=== PATIENT | female | born 1960 | race Caucasian/White ===

== ENCOUNTER → 2016-12-28 | Outpatient (CLI) | payer MEDICARE ==
[~2016-12-28] MED LIST: ACETAMINOPHEN650 M1 PO; AMBIEN10 MG PO; BACTRIM DS TAB1 EACH PO; BIOTIN2500 MCG PO; BUTRANS1 EAC3 TD; CELEXA PO; CLARITIN10 M2 PO; GERITOL COMPLET1 TA1 PO; GLUCOSAMINE &1 EAC1 PO; HYDROCODON-ACE1 EAC5 PO; ICAPS AREDS1 TAB.SA PO; LISINOPRIL10 MG PO; LORCET HD 10-31 EACH PO; MULTI VITAMIN1 EACH PO; OCUVITE SOFTGE1 EACH PO; OMEPRAZOLE40 M1 PO; OSTEO BI-FLEX1 EAC4 PO; PERCOCET 5/321 UDTAB PO; PERCOCET 7.5-31 EACH PO; PRAVASTATIN SOD40 MG PO; REMICADE IV; SEROQUEL25 MG PO; VERAPAMIL SR240 MG PO; WELLBUTRIN PO; XARELTO10 MG PO; XELJANZ XR11 MG PO; XELJANZ5 MG PO
--- NOTE | ~2016-12-28 | EKG ---
PATIENT: SOURAV CERVANTES UNIT #: [id number] Ventricular Rate: 70 BPM Atrial Rate: 70 BPM P-R Interval: 178 ms QRS Duration: 78 ms Q-T Interval: 408 ms QTC Calculation(Bezet): 440 ms P [employer]: 3 degrees Calculated R [employer]: 13 degrees Calculated T [employer]: 13 degrees Diagnosis Line: Normal sinus rhythm Diagnosis Line: Normal ECG Diagnosis Line: When compared with ECG of 24-SEP-2015 10:15, Diagnosis Line: No significant change was found Diagnosis Line: Confirmed by ADRIANO LEBRON MD ([id number]) on 12/29/2016 Diagnosis Line: 10:37:57 AM INTERPRETING MD: VI EPSTEIN
[2016-12-28 15:15] LABS: HEMATOCRIT 39.2 % (35.0-45.0); MEAN CORPUSCULAR HEMOGLOBIN 30.9 PG (28-34); MEAN CORPUSCULAR HGB CONC 33.2 g/dL (30-36); MEAN PLATELET VOLUME 8.7 FL (6.5-11.5); RED BLOOD COUNT 4.21 X10e (3.90-5.30); RED CELL DISTRIBUTION WIDTH 13.3 % (11.0-15.5); WHITE BLOOD COUNT 5.7 X10e3 (4.0-10.5)
[2016-12-28 15:19] LABS: URINE APPEARANCE CLEAR; URINE BILIRUBIN NEG (NEG); URINE BLOOD NEG (NEG); URINE COLOR YELLOW; URINE GLUCOSE NEG (NEG); URINE KETONE NEG (NEG); URINE LEUKOCYTE ESTERASE 1+ (NEG); URINE NITRATE NEG (NEG); URINE PROTEIN NEG (NEG); URINE SPECIFIC GRAVITY 1.013 (1.003-1.035); URINE UROBILINOGEN 0.2 MG/DL (NEG)
[2016-12-28 15:21] LABS: CULTURE INDICATED? YES; U HYALINE CASTS AUWI 0-2 /[LPF]; URBCS1 AUWI 0-2 /[HPF] (0-2); URINE BACTERIA AUWI NEG (NEGATIVE); URINE SQUAMOUS EPITHELIAL CELL NONE SEEN /[HPF]
[2016-12-28 15:23] LABS: URINE SOURCE CLEAN CATCH
[2016-12-28 16:10] LABS: BUN/CREATININE RATIO 13.12; CALCIUM SERUM 9.4 mg/dL (8.4-10.2); CREATININE SERUM 1.6 mg/dL (0.6-1.4); GLOM FILT RATE Estimated 35.2 mL/min (>60); POTASSIUM 4.4 mmol/L (3.5-5.1)
== END | disposition home or self-care (01) ==
LOC: CAMB 12-27 13:00
PROVIDERS: Orthopaedic Surgery
DX: Z01.818 Encounter for other preprocedural examination (principal)
CPT/HCPCS: 36415; 80048; 81003; 85027; 87070; 87086; 93005

== ENCOUNTER 2017-01-10 14:37 | Inpatient (IN) | payer MEDICARE ==
--- NOTE | ~2017-01-10 | HP ---
Unit #: [id number] #: [id number] Patient: SOURAV CERVANTES [id number] [address] [address] [id number] I MR#: [id number] NAME: SOURAV CERVANTES. ROOM: [facility] Age: Sex: F Admission Date: 01/10/2017 : 1960 Attending Physician: Jesus Razo M.D. Primary Care Physician: Generic Doctor Not In System HISTORY AND PHYSICAL CHIEF COMPLAINT Abnormal labs. HISTORY OF PRESENT ILLNESS The patient is a 56-year-old female who was awaiting revision of left total ankle arthroplasty earlier today and was found to have hypotension. The patient's blood pressure was 74/56. The patient had workup in the preop area with abnormal labs with a potassium of 6.6 and creatinine of 6.5, and the patient was sent to the emergency room for further workup. The patient stated that patient was started on antibiotic Bactrim for a questionable UTI by the orthopedic surgeon. The patient also complained of feeling tired and spasm feelings in the belly. The patient denied any urinary complaints, urgency, or frequency. The patient was found to be hypotensive in the emergency room with a blood pressure of 72/45, and patient received Kayexalate, amp of D50, regular insulin, sodium bicarbonate, and calcium gluconate in the emergency room. The patient had a CT of the abdomen and pelvis that showed nonobstructing bilateral calculi and no acute findings. The patient is being admitted for the above reasons. PAST MEDICAL HISTORY 1. Dysphagia. 2. Coronary artery disease. 3. Rheumatoid arthritis. 4. Hypertension. 5. Gastroesophageal reflux disease. 6. Hypercholesterolemia. PAST SURGICAL HISTORY 1. Tonsillectomy. 2. Cholecystectomy. 3. Partial hysterectomy. 4. Colon resection. 5. Reversal of colostomy. 6. Breast biopsy. ALLERGIES None. HOME MEDICATIONS 1. Multivitamin. 2. Ocuvite. 3. Bactrim. Unit #: [id number] #: [id number] Patient: SOURAV CERVANTES 4. Hydrocodone. 5. Claritin. 6. Seroquel. 7. Lisinopril. 8. Xeljanz. 9. Osteo Bi-Flex. 10. Wellbutrin. 11. Celexa. 12. Pravastatin. 13. Verapamil. SOCIAL HISTORY No history of smoking, alcohol, or any illicit drug abuse. FAMILY HISTORY Reviewed and none. REVIEW OF SYSTEMS A 14-point review of systems was performed and only pertinent positive findings are described above. The remaining are negative. PHYSICAL EXAMINATION GENERAL: Patient is lying in bed not in acute distress. VITAL SIGNS: Temperature 98.2, pulse 85, respiratory rate 16, blood pressure 172/45, and saturating 100% on room air. HEENT: Head atraumatic, normocephalic. Pupils equal, round, and reactive to light and accommodation. Extraocular movements are intact. Dry mucous membranes. NECK: Supple. LUNGS: Clear to auscultation. HEART: Regular rate and rhythm. ABDOMEN: Soft. Positive bowel sounds. EXTREMITIES: Patient has swelling of the ankle. There is no warmth or effusion. Tender to palpation over the medial malleolus. DIAGNOSTIC STUDIES LABORATORY: Glucose 92, BUN 61, creatinine 6.5, sodium 134, potassium 6.6, chloride 107, bicarb 17, calcium 9.2, total protein 7.3, albumin 4.3, AST 16, ALT 14, and alkaline phosphatase 60. WBC 5.4, hemoglobin 10.9, hematocrit 34.1, and platelets 219,000. Urinalysis shows 2+ leukocyte esterase, 1+ protein, 5-10 urine WBCs, and 10-25 urine hyaline crystals. CARDIOLOGY: EKG shows normal sinus rhythm with prolonged QT. ASSESSMENT 1. Acute kidney injury. 2. Hyperkalemia. 3. Sepsis. 4. Urinary tract infection. PLAN Admit the patient to inpatient with telemetry. Continue to replace fluid per protocol. Patient will be started on empiric IV antibiotic with Rocephin, and check a straight cath urine to rule out infection. Patient has been consulted by Nephrology. Repeat the labs again in the morning, and further recommendations will follow. Dictated by Unit #: [id number] #: [id number] Patient: SOURAV CERVANTES M.D. AMA/am TD: 01/10/2017 18:10 JOB #: [id number] HISTORY AND PHYSICAL Page 1 of 1 X CHIKI CULVER MD HISTORY AND PHYSICAL
--- NOTE | ~2017-01-10 | CR72 ---
[facility] A Service of [facility] & [facility] RADIOLOGY TEXT RESULTS PATIENT: SOURAV CERVANTES LOCATION: [address] : [birth year] UNIT #: [id number] AGE: [address]: Jesus Razo MD SEX: F ORDER DR: [id number] [facility] [address] [place], [place] [address] [id number] I MR#: [id number] Acc #: [id number] NAME: SOURAV CERVANTES. : 1960 SEX: F STUDY DATE/TIME: 01/10/2017 19:58 UNIT: [facility] ROOM: [facility] STUDY DESCRIPTION: CR Chest Single View Portable Attending Physician: Belle Navarro M.D. Ordering Physician: Ga Price M.D. Primary Care Physician: Generic Doctor Not In System MEDICAL IMAGING REPORT This report is preliminary unless electronic signature is present EXAM Portable chest radiograph INDICATIONS Central line placement; this was placed today. FINDINGS Patient has cardiomegaly. No pneumothorax or pleural effusion is seen and I do not see any evidence of edema. Patient has a right internal jugular vein central venous line, which appears to extend into the superior vena cava. No pneumothorax again is seen. Overall lung volumes appear somewhat diminished. Dictated by... Latonya Copeland M.D. THIS IS AN ELECTRONICALLY VERIFIED REPORT Latonya Copeland M.D. at 01/11/2017 10:59 AM AFF/psc TD: 01/11/2017 03:32 JOB #: [id number] MEDICAL IMAGING REPORT Page 1 of 1 COPY
--- NOTE | ~2017-01-10 | EKG ---
PATIENT: SOURAV CERVANTES UNIT #: [id number] Ventricular Rate: 86 BPM Atrial Rate: 86 BPM P-R Interval: 180 ms QRS Duration: 80 ms Q-T Interval: 414 ms QTC Calculation(Bezet): 495 ms P [place]: 33 degrees Calculated R [place]: 54 degrees Calculated T [place]: 60 degrees Diagnosis Line: Normal sinus rhythm Diagnosis Line: Prolonged QT Diagnosis Line: Abnormal ECG Diagnosis Line: When compared with ECG of 10-JAN-2017 15:21, Diagnosis Line: Nonspecific T wave abnormality now evident in Diagnosis Line: Lateral leads Diagnosis Line: Confirmed by DAVID MENSAH MD ([id number]) on Diagnosis Line: 01/14/2017 9:39:10 AM INTERPRETING KIRSTIN CLARK
--- NOTE | ~2017-01-10 | DS ---
Unit #: [id number] #: [id number] Patient: SOURAV CERVANTES [id number] [address] [place], [place] [address] [id number] I MR#: [id number] NAME: SOURAV CERVANTES. ROOM: 325 Age: 56 Sex: F Admission Date: 01/10/2017 : 1960 Discharge Date: 01/13/2017 Attending Physician: Jesus Razo M.D. Primary Care Physician: Generic Doctor Not In System DISCHARGE SUMMARY REASON FOR ADMISSION Abnormal laboratory studies. HISTORY OF PRESENT ILLNESS The patient is a 56-year-old female who was awaiting revision of the left total knee arthroplasty and through preoperative management she was noted to have hypotension with a blood pressure of 74/56, potassium of 6.6 and a creatinine of 6.5 and therefore, she was sent to the emergency department for further evaluation. She was recently started on Bactrim for questionable UTI by her orthopedic surgery. She has been feeling tired, as well as been having an increased dyspnea on exertion over the past several days. She was subsequently placed in the ICU and consultations were subsequently placed to Dr. Razo of nephrology services who appropriately managed acute kidney injury, as well as hyperkalemia. The patient responded well to IV fluids. Dr. Ortiz was also consulted as threshing operator and patient was transitioned off pressor support and placed on Solu-Cortef initially and that later was discontinued. He blood pressure has remained fairly stable. Her creatinine this morning currently stands at 1.4. She is now clinically stable for discharge home. It seems likely that her acute kidney injury was secondary to Bactrim, as well as acute dehydration. She did undergo CT of the abdomen and pelvis this hospital admission, which did reveal large hiatal hernia, enumerable bilateral nonobstructing renal stones. Initial urinalysis was positive; however, final urine culture result did not reveal any significant growth and blood cultures were also obtained at hospital admission, which did not show any bacterial growth. The patient should have a repeat BMP in approximately seven days to followup on patient's creatinine. Her creatinine at the time of discharge was 1.4, GFR estimated at 42. She is to avoid all NSAID medications, as well as any nephrotoxic medications moving forward. FINAL DISCHARGE DIAGNOSES 1. Acute kidney injury. 2. Hypertension. 3. Hyperkalemia on admission. 4. Coronary artery disease. 5. Rheumatoid arthritis. 6. Hypertension. Unit #: [id number] #: [id number] Patient: SOURAV CERVANTES 7. Gastroesophageal reflux disease. 8. Hyperlipidemia. 9. Left ankle pain/plans for revision soon, followed by Dr. Medeiros. DISCHARGE MEDICATIONS 1. Wellbutrin 75 mg p.o. q. a.m. 2. Celexa 40 mg p.o. q. a.m. 3. Claritin 10 mg p.o. q. a.m. 4. Seroquel 25 mg p.o. q.h.s. 5. Verapamil 240 mg p.o. q.h.s. 6. Pravastatin 40 mg p.o. q.h.s. 7. Osteo Bi-Flex caplet 1 capsule p.o. b.i.d. 8. Ocuvite softgel 1 capsule p.o. daily. 9. Multivitamin daily. 10. [place] 10/325 1 tablet p.o. t.i.d. p.r.n. DISCHARGE CONDITION Stable. DISCHARGE DISPOSITION Home. FOLLOWUP PCP in seven days for repeat BMP. Dictated by... Bryce Oneal/huy TD: 01/13/2017 11:48 JOB #: [id number] DISCHARGE SUMMARY Page 1 of 1 X Jesus Razo MD X DISCHARGE SUMMARY
--- NOTE | ~2017-01-10 | CO ---
Unit #: [id number] #: [id number] Patient: SOURAV CERVANTES [id number] [address] [place], [place] [address] [id number] I MR#: [id number] NAME: SOURAV CERVANTES. ROOM: [facility] Age: 56 Sex: F Admission Date: 01/10/2017 : 1960 Attending Physician: Jesus Razo M.D. Primary Care Physician: Generic Doctor Not In System CONSULTATION REPORT REASON FOR CONSULTATION Critical care management. CHIEF COMPLAINT/HISTORY OF PRESENT ILLNESS Patient basically is a 56-year-old female with past medical history of dysphagia, Crohn disease, rheumatoid arthritis, hypertension, gastroesophageal reflux disease who presents with a complaint of left ankle pain. She was found to have left ankle arthroplasty loosening and was going for surgery, was found to be hypertensive and in acute renal failure with hyperkalemia. Was started on aggressive hydration and has responded. Currently, still hypotensive and in shock. I am seeing the patient at the bedside. Denies any headache, blurry vision. No chest pain. PHYSICAL EXAMINATION VITAL SIGNS: Temperature 98, pulse 87, respirations 12, blood pressure 110/70. NEUROLOGIC: Awake, alert, oriented. No neuro deficit. HEENT: PERRLA plus 1. NECK: Supple. No JVD. CHEST: Bilateral air entry. Bilateral mild rhonchi. GASTROINTESTINAL: Nontender, soft. Bowel sounds positive. EXTREMITIES: No edema. SKIN: No rash. No ulcer. LYMPHATIC: No lymphadenopathy. DIAGNOSTIC STUDIES Labs and imaging have been reviewed. ASSESSMENT 1. Shock, likely hypovolemic versus septic, requiring pressors. 2. Left arthroplasty ankle loosening. 3. Acute renal failure. 4. Hyperkalemia. 5. History of chronic kidney disease. PLAN Plan is to admit the patient. Continue IV antibiotics, IV fluids, and add IV steroids. Wean pressors. GI/DVT prophylaxis. Orthopedic to follow. Follow cultures. Monitor potassium level. ICU protocol. Patient will be closely monitored. Please see orders for detailed plan. Unit #: [id number] #: [id number] Patient: SOURAV CERVANTES Dictated by... Bryce Cao/linwood TD: 01/11/2017 09:39 JOB #: [id number] CONSULTATION REPORT Page 1 of 1 X Ileana Ortiz MD CONSULTATION REPORT
--- NOTE | ~2017-01-10 | CO ---
Unit #: [id number] #: [id number] Patient: SOURAV CERVANTES [id number] [address] [place], [place] [address] [id number] I MR#: [id number] NAME: SOURAV CERVANTES. ROOM: [facility] Age: 56 Sex: F Admission Date: 01/10/2017 : 1960 Attending Physician: Jesus Razo M.D. Primary Care Physician: Generic Doctor Not In System CONSULTATION REPORT REASON FOR CONSULTATION Renal failure. HISTORY OF PRESENT ILLNESS The patient is a 56-year-old female with significant past medical history of a chronic kidney disease stage 3, rheumatoid arthritis, Crohn disease, mainly admitted to the hospital because she came for repair of loosened tibia and talar component. Surgery was planned but because found to be extremely hypotensive and with acute renal failure and hyperkalemia, she was sent to the ER and admitted to the ICU. Patient was given a couple of liters of fluid in the ER. Her blood pressure improved. She was on pressor when I saw her, but they were tapering it down. Patient was feeling a lot better than yesterday. Urine output has improved. Potassium level 6.6, now at 5.1. PAST MEDICAL HISTORY Chronic kidney disease, stage 3. MEDICATIONS Home medications did include: 1. Motrin. 2. Lisinopril. 3. Estradiol. 4. Citalopram. 5. Methylprednisolone. 6. Pravastatin. 7. Ranitidine. 8. Verapamil. SOCIAL HISTORY She is a nonsmoker. Does not drink alcohol. FAMILY HISTORY Unremarkable. PHYSICAL EXAMINATION GENERAL: On examination, the patient is a middle-aged female, not in any acute distress. VITAL SIGNS: Blood pressure 116/74, pulse 85, temperature 98, respiratory rate 18. HEENT: Pupils reactive to light. Extraocular movements intact. Mucous membranes moist. NECK: Supple. No JVD. No palpable lymph nodes in the neck. Thyroid is not enlarged. No carotid bruit. Unit #: [id number] #: [id number] Patient: SOURAV CERVANTES CHEST: The patient has bilateral air entry. No wheeze. No crackle. HEART: Regular rate and rhythm. No murmur. No gallop. PMI is not displaced. ABDOMEN: Soft. Bowel sounds are positive. No guarding. No rigidity. No rebound tenderness. EXTREMITIES: No clubbing, cyanosis. Some problem in the ankles with some deformity. DIAGNOSTIC STUDIES LABORATORY: Labs were reviewed. Potassium is now 5.1, it was 6.6. Creatinine was 5.8, now improved to 3.5. Hemoglobin 9.5, white cell count 3.9. ASSESSMENT 1. Acute kidney injury, likely multifactorial including Bactrim, use of nonsteroidal anti-inflammatory drugs, and DALE inhibitors in the presence of some urine infection and low blood pressure and causing acute tubular necrosis with significant hyperkalemia which is improving slowly. 2. Metabolic acidosis, secondary to renal failure. 3. Hyperkalemia, cause secondary to Bactrim because trimethoprim can cause significant hyperkalemia working as an aldosterone nisha. Also, hyperkalemia contributed by DALE inhibitors and patient's renal failure. 4. Chronic kidney disease stage 3, most likely creatinine will improve. 5. Renal stone: The patient had multiple kidney stones. Cause of kidney stone is likely related to patient's Crohn disease. That needs to be well managed and patient should get a kidney stone workup as an outpatient. 6. Crohn disease: Followup with GI. 7. Leukopenia: May be because of Bactrim at this time. 8. Fracture of the ankle that needs repair. It is okay to do the surgery by tomorrow. PLAN Change IV fluid to bicarbonate-base fluid. Follow with repeat labs tomorrow morning. Hold blood pressure medicine at this time. A stone workup as an outpatient. Patient should follow up with her stem shaper when discharged. Thank you for letting me participate. Dictated by... Octavio Phan M.D. Abril TD: 01/11/2017 14:03 JOB #: [id number] Unit #: [id number] #: [id number] Patient: SOURAV CERVANTES CONSULTATION REPORT Page 1 of 1 X Octavio Phan MD CONSULTATION REPORT
--- NOTE | ~2017-01-10 | CT4 ---
[facility] A Service of [facility] & [facility] RADIOLOGY TEXT RESULTS PATIENT: SOURAV CERVANTES LOCATION: [address] : [birth year] UNIT #: [id number] AGE: [address]: Jesus Razo MD SEX: F ORDER DR: [id number] [facility] [address] [place], [place] [address] [id number] I MR#: [id number] #: [id number] NAME: SOURAV CERVANTES. : 1960 SEX: F STUDY DATE/TIME: 01/10/2017 16:07 [facility] STUDY DESCRIPTION: CT Abd and Pelv Wo Cont Attending Physician: Belle Navarro M.D. Ordering Physician: Ga Price M.D. Primary Care Physician: Generic Doctor Not In System MEDICAL IMAGING REPORT This report is preliminary unless electronic signature is present EXAM CT of the abdomen and pelvis without contrast media HISTORY Mid abdominal pain beginning today. TECHNIQUE This CT exam was performed with one or more of the following radiation dose reduction techniques: automatic exposure control, adjustment of mA and/or kV according to patient size, and iterative reconstruction. Axial imaging of the abdomen and pelvis was performed without contrast media. No prior CT exams are available for comparison. FINDINGS Scans through the bases show a large hiatal hernia. Scans through the liver parenchyma are normal. The gallbladder is removed. The spleen is of normal size. The pancreas has a normal appearance. Adrenal glands are not enlarged. The patient has innumerable stones throughout both the right and left kidney. Right ureter is of normal course and caliber. The left ureter similarly is of normal course and caliber. There are no ureteral stones, and there is no hydronephrosis. The bladder has a normal appearance. Uterus is surgically absent. There is a large amount of gas within the rectal vault. Postsurgical changes are identified in the small bowel and colon. Patient has apparently had a left hemicolectomy. Multiple surgical clips are seen in the perirectal area. Small soft tissue nodules are seen in the subcutaneous tissues over the right side of the abdomen of questionable significance. These measure less than a centimeter in size. CONCLUSION 1. Large hiatal hernia. [facility] A Service of [facility] RADIOLOGY TEXT RESULTS PATIENT: SOURAV CERVNATES LOCATION: [facility]- : 56 UNIT #: [id number] AGE: [address]: Jesus Razo MD SEX: F ORDER DR: 2. Status post cholecystectomy, hysterectomy and left hemicolectomy. 3. Innumerable bilateral nonobstructing renal stones. No acute findings in the abdomen or pelvis. Dictated by... Dinh Willingham M.D. THIS IS AN ELECTRONICALLY VERIFIED REPORT Dinh Willingham M.D. at 01/11/2017 5:02 PM Lorna TD: 01/10/2017 22:54 JOB #: [id number] MEDICAL IMAGING REPORT Page 1 of 1 COPY
--- NOTE | ~2017-01-10 | EKG ---
PATIENT: SOURAV CERVANTES UNIT #: [id number] Ventricular Rate: 77 BPM Atrial Rate: 77 BPM P-R Interval: 182 ms QRS Duration: 88 ms Q-T Interval: 406 ms QTC Calculation(Bezet): 459 ms P [place]: 18 degrees Calculated R [place]: 37 degrees Calculated T [place]: 16 degrees Diagnosis Line: Normal sinus rhythm Diagnosis Line: Normal ECG Diagnosis Line: When compared with ECG of 10-JAN-2017 12:11, Diagnosis Line: (unconfirmed) Diagnosis Line: No significant change was found Diagnosis Line: Confirmed by LUEK BANERJEE MD ([id number]) on Diagnosis Line: 01/10/2017 3:52:16 PM INTERPRETING MD: CHRISS EPSTEIN
[~2017-01-10 14:37] MED LIST changes: -ACETAMINOPHEN650 M1 PO; -GLUCOSAMINE &1 EAC1 PO; -PERCOCET 5/321 UDTAB PO; -XELJANZ XR11 MG PO
[2017-01-10 18:15] LABS: BASOPHIL% 0.9 % (0-2.5); EOSINOPHIL# 0.1 X10e3 (0-0.7); EOSINOPHIL% 1.3 % (0.0-7.0); HEMATOCRIT 28.5 % (35.0-45.0); HEMOGLOBIN 9.4 gm/dL (12.0-16.0); LYMPHOCYTE% 21.1 % (17.0-45.0); MEAN CELL VOLUME 95.1 FL (83-96); MEAN CORPUSCULAR HEMOGLOBIN 31.4 PG (28-34); MEAN CORPUSCULAR HGB CONC 33.1 g/dL (30-36); MEAN PLATELET VOLUME 8.2 FL (6.5-11.5); MONOCYTE# 0.5 X10e3 (0-1.0); MONOCYTE% 10.6 % (3.0-12.0); NEUTROPHIL# 3.1 X10e3 (1.5-7.1); NEUTROPHIL% 66.1 % (40-75); PLATELET COUNT 169 X10e3 (140-420); RED BLOOD COUNT 2.99 X10e (3.90-5.30); RED CELL DISTRIBUTION WIDTH 13.6 % (11.0-15.5); WHITE BLOOD COUNT 4.6 X10e3 (4.0-10.5)
[2017-01-10 18:21] LABS: DIFF IND NO
[2017-01-10 18:39] LABS: BUN/CREATININE RATIO 10.39; CALCIUM SERUM 7.9 mg/dL (8.4-10.2); CREATININE SERUM 5.1 mg/dL (0.6-1.4); GLOM FILT RATE Estimated 8.7 mL/min (>60)
[2017-01-10 18:40] LABS: POTASSIUM 4.6 mmol/L (3.5-5.1)
[2017-01-10 19:01] LABS: URINE SOURCE CLEAN CATCH
[2017-01-10 19:10] LABS: URINE APPEARANCE CLEAR; URINE BILIRUBIN NEG (NEG); URINE BLOOD NEG (NEG); URINE COLOR YELLOW; URINE GLUCOSE NEG (NEG); URINE KETONE NEG (NEG); URINE LEUKOCYTE ESTERASE NEG (NEG); URINE NITRATE NEG (NEG); URINE PROTEIN NEG (NEG); URINE SPECIFIC GRAVITY 1.012 (1.003-1.035); URINE UROBILINOGEN 0.2 MG/DL (NEG)
[2017-01-10 19:15] LABS: CULTURE INDICATED? NO
[2017-01-11 04:42] LABS: BASOPHIL% 1.2 % (0-2.5); EOSINOPHIL# 0.1 X10e3 (0-0.7); EOSINOPHIL% 2.1 % (0.0-7.0); HEMOGLOBIN 9.5 gm/dL (12.0-16.0); LYMPHOCYTE# 1.2 X10e3 (1.0-3.5); MEAN CELL VOLUME 95.2 FL (83-96); MEAN CORPUSCULAR HEMOGLOBIN 31.3 PG (28-34); MEAN CORPUSCULAR HGB CONC 32.9 g/dL (30-36); MEAN PLATELET VOLUME 8.7 FL (6.5-11.5); MONOCYTE# 0.5 X10e3 (0-1.0); NEUTROPHIL# 2.1 X10e3 (1.5-7.1); NEUTROPHIL% 52.7 % (40-75); PLATELET COUNT 165 X10e3 (140-420); RED BLOOD COUNT 3.05 X10e (3.90-5.30); RED CELL DISTRIBUTION WIDTH 13.5 % (11.0-15.5); WHITE BLOOD COUNT 3.9 X10e3 (4.0-10.5)
[2017-01-11 04:47] LABS: DIFF IND NO
[2017-01-11 05:15] LABS: BUN/CREATININE RATIO 12.57; CALCIUM SERUM 8.5 mg/dL (8.4-10.2); CREATININE SERUM 3.5 mg/dL (0.6-1.4); GLOM FILT RATE Estimated 13.6 mL/min (>60); POTASSIUM 5.1 mmol/L (3.5-5.1)
[2017-01-12 05:02] LABS: BASOPHIL% 0.9 % (0-2.5); EOSINOPHIL% 0.6 % (0.0-7.0); HEMATOCRIT 28.6 % (35.0-45.0); HEMOGLOBIN 9.4 gm/dL (12.0-16.0); LYMPHOCYTE% 25.8 % (17.0-45.0); MEAN CELL VOLUME 94.5 FL (83-96); MEAN CORPUSCULAR HEMOGLOBIN 31.3 PG (28-34); MEAN CORPUSCULAR HGB CONC 33.1 g/dL (30-36); MEAN PLATELET VOLUME 8.8 FL (6.5-11.5); MONOCYTE# 0.3 X10e3 (0-1.0); MONOCYTE% 8.1 % (3.0-12.0); NEUTROPHIL# 2.6 X10e3 (1.5-7.1); NEUTROPHIL% 64.6 % (40-75); PLATELET COUNT 178 X10e3 (140-420); RED BLOOD COUNT 3.02 X10e (3.90-5.30); RED CELL DISTRIBUTION WIDTH 13.5 % (11.0-15.5)
[2017-01-12 05:16] LABS: DIFF IND NO
[2017-01-12 06:03] LABS: ALBUMIN SERUM 3.3 g/dL (3.5-5.0); BILIRUBIN,TOTAL 0.8 mg/dL (0.2-2.0); BUN/CREATININE RATIO 14.7; CALCIUM SERUM 8.3 mg/dL (8.4-10.2); CREATININE SERUM 1.7 mg/dL (0.6-1.4); GLOM FILT RATE Estimated 32.7 mL/min (>60); MAGNESIUM 1.7 mg/dL (1.6-3.0); PHOSPHOROUS 2.9 mg/dL (2.5-4.6); POTASSIUM 4.7 mmol/L (3.5-5.1); PROTEIN TOTAL SERUM 5.9 g/dL (6.0-8.3)
[2017-01-13 07:36] LABS: BASOPHIL# 0.1 X10e3 (0-0.3); HEMATOCRIT 29.4 % (35.0-45.0); HEMOGLOBIN 9.6 gm/dL (12.0-16.0); LYMPHOCYTE# 1.6 X10e3 (1.0-3.5); LYMPHOCYTE% 31.4 % (17.0-45.0); MEAN CELL VOLUME 93.7 FL (83-96); MEAN CORPUSCULAR HEMOGLOBIN 30.6 PG (28-34); MEAN CORPUSCULAR HGB CONC 32.7 g/dL (30-36); MEAN PLATELET VOLUME 8.6 FL (6.5-11.5); MONOCYTE# 0.4 X10e3 (0-1.0); MONOCYTE% 7.3 % (3.0-12.0); NEUTROPHIL# 2.9 X10e3 (1.5-7.1); NEUTROPHIL% 59.3 % (40-75); PLATELET COUNT 205 X10e3 (140-420); RED BLOOD COUNT 3.14 X10e (3.90-5.30); RED CELL DISTRIBUTION WIDTH 13.5 % (11.0-15.5)
[2017-01-13 07:37] LABS: DIFF IND NO
[2017-01-13 08:33] LABS: ALBUMIN SERUM 3.4 g/dL (3.5-5.0); BILIRUBIN,TOTAL 0.3 mg/dL (0.2-2.0); BUN/CREATININE RATIO 12.85; CALCIUM SERUM 8.7 mg/dL (8.4-10.2); CREATININE SERUM 1.4 mg/dL (0.6-1.4); GLOM FILT RATE Estimated 41.3 mL/min (>60); MAGNESIUM 1.7 mg/dL (1.6-3.0); PHOSPHOROUS 2.7 mg/dL (2.5-4.6); POTASSIUM 4.5 mmol/L (3.5-5.1); PROTEIN TOTAL SERUM 5.9 g/dL (6.0-8.3)
[2017-01-13] MEDS ORDERED: ACETAMINOPHEN650 M1 PO (11:31)
[2017-01-13] MEDS ORDERED: GLUCOSAMINE &1 EAC1 PO ×2 (11:35→11:37)
== END 2017-01-13 13:29 | disposition home or self-care (01) | DRG 682 ==
LOC: CED 14:37 → CEDOF 17:20 → CED 17:48 → CICCU2 22:18 → CEDOF 22:18 → CICCU2 01-11 07:29 → C3A PCU 01-12 17:42
PROVIDERS: Emergency Medicine; Internal Medicine; Internal Medicine Nephrology
DX: N17.0 Acute kidney failure with tubular necrosis (principal); R57.1 Hypovolemic shock; E87.5 Hyperkalemia; E87.2 Acidosis; K50.90 Crohn's disease, unspecified, without complications; T84.038A Mechanical loosening of other internal prosthetic joint, initial encounter; N39.0 Urinary tract infection, site not specified; E86.0 Dehydration; I12.9 Hypertensive chronic kidney disease with stage 1 through stage 4 chronic kidney disease, or unspecified chronic kidney disease; N18.3 Chronic kidney disease, stage 3 (moderate); I25.10 Atherosclerotic heart disease of native coronary artery without angina pectoris; M06.9 Rheumatoid arthritis, unspecified; K21.9 Gastro-esophageal reflux disease without esophagitis; E78.5 Hyperlipidemia, unspecified; Z90.49 Acquired absence of other specified parts of digestive tract; Z90.710 Acquired absence of both cervix and uterus; E78.00 Pure hypercholesterolemia, unspecified; N20.0 Calculus of kidney; D72.819 Decreased white blood cell count, unspecified; T37.0X5A Adverse effect of sulfonamides, initial encounter
CPT/HCPCS: 36415; 71010; 74176; 80048; 80053; 81003; 83605; 83735; 84100; 84300; 85025; 87040; 87086; 93005; 96361; 96374; 96375; 99285; J0610; J0696; J1720; J2795

== ENCOUNTER 2017-02-21 13:39 | Inpatient (IN) | payer MEDICARE ==
--- NOTE | ~2017-02-21 | OR ---
Unit #: [id number] #: [id number] Patient: SOURAV CERVANTES [id number] [address] [place], [place] [address] [id number] I MR#: [id number] NAME: SOURAV CERVANTES ROOM: 452 Date of Procedure: 02/21/2017 Admission Date: 02/21/2017 Surgeon: Rin Medeiros M.D. : 1960 Attending Physician: Rin Medeiros M.D. Referring Physician: Rin Medeiros M.D. 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 PROCEDURES PERFORMED 1. Left total ankle arthroplasty revision (). 2. Left proximal tibial bone graft (). INSPECTOR PACKER Kendal Vang Vessel. ANESTHESIA Popliteal saphenous block and general. INDICATIONS FOR SURGERY The patient is a 56-year-old female, who is one year status post left total ankle arthroplasty, using the Jose Talaris implant. She has had persistent pain and swelling. Radiographs show persistent loosening of the talar component. Workup for infection has been negative. The patient has failed to respond to conservative care and is therefore to undergo revision. Bone scan documents loosening of both tibial and talar components. DESCRIPTION OF PROCEDURE The patient underwent popliteal saphenous block. She was then taken to the operating room and placed in supine position. General anesthetic was induced. The left leg was identified as the correct operative extremity during the time-out procedure, the IV antibiotic protocol was followed. The left leg was then prepped and draped in usual sterile fashion. The leg was exsanguinated and the thigh tourniquet was inflated to 300 mmHg. The old anterior longitudinal scar was used for a 12 cm anterior longitudinal incision over the ankle. Subcutaneous tissue was carefully divided. The superficial peroneal nerve was identified and preserved. The extensor retinaculum was opened, and the interval between the extensor hallucis longus and anterior tibial tendons was developed. The neurovascular bundle was retracted laterally. The joint was exposed with subperiosteal dissection. There was hypertrophy of the synovium and synovial biopsy was taken and sent to Pathology. Aerobic and anaerobic cultures were taken. There was no evidence of purulence. All synovitis Unit #: [id number] #: [id number] Patient: SOURAV CERVANTES was excised. The talar component was clearly loose. The tibial component was exposed. The osteotome was also found to be loose. The poly was disimpacted from the tibial component and removed. The tibial component was then easily removed and the talar component was also easily removed. There was a large cavity underlying the keel of the talar component. This was curetted, and care was taken to ensure that both medial and lateral gutters were cleared of all synovitic tissue. The tibial alignment guide from the Jose Talaris XT revision implant system was then aligned with the tibia and pinned to the tibial tuberosity and to the distal tibia. An additional 2 mm of bone resection was then set for the tibia. Alignment was checked with C-arm fluoroscopy. Rotation was set and the cut was made. The talar cutting guide was then applied and position was checked with C-arm fluoroscopy. An additional 2 mm of bone was taken from the talus. The large 1 cm defect in the talus was curetted vigorously, and there was no extension into the subtalar joint. The tibial and talar trials were then applied. The #1 tibial trial component was placed with an 11-mm trial insert. The talar XT flat cut talar trial was placed in position medially and laterally, and allowed to rotate with the tibia and then was pinned into place. The garcia saw was utilized for the talar component, and two thin holes were placed. The three drill holes were placed in the tibial component and then care was made to connect them with the osteotome and rasp. All wounds were then copiously irrigated. It was decided to bone graft under the large cavity and the talus. Therefore, a 5 cm curvilinear incision was made over the lateral proximal tibia. The subcutaneous tissue was divided. The extensor retinaculum was opened. The lateral tibial cortex was exposed subperiosteally. A 1 cm cortical window was made with the power osteotome, and the window was removed. A large amount of cancellous bone graft was then harvested with the curved curette. This was then packed into the talar cavity before final implantation of the #1 talar XT revision component. Intraoperative C-arm fluoroscopy documented satisfactory position of the talar component. The #1 tibial component with 11-mm poly insert was then impacted into place, and this was fit appropriately. AP and lateral C-arm fluoroscopic views documented satisfactory position of the components. Additional autogenous graft was then packed around the keel and impacted with a bone tamp. The proximal tibial donor site was irrigated and then packed with Gelfoam. The cortical window was replaced. The extensor fascia was closed with 0 Vicryl cuwxjr-er-soyhm sutures. The ankle joint capsule was closed with 2-0 Vicryl piexag-xv-rcydj sutures. The extensor retinaculum was closed with 2-0 Vicryl saudyo-iq-plkod sutures. Subcutaneous tissue was closed with 3-0 Vicryl, and the skin was closed with 3-0 nylon horizontal mattress sutures. It should be noted that the ankle joint was stable both medially and laterally and exhibited ankle dorsiflexion to 5 degrees and plantar flexion to 40 degrees. Xeroform gauze, dressing, sponges, cast padding, posterior fiberglass splint, and Angelo wraps were applied. The patient was then transported to the recovery room in stable condition. ESTIMATED BLOOD LOSS Minimal. Unit #: [id number] #: [id number] Patient: SOURAV CERVANTES COMPLICATIONS None. SPECIMENS Portion of ankle joint capsule and aerobic and anaerobic cultures of left ankle joint. Dictated by.Tristen Medeiros M.D. RTH/modl TD: 02/22/2017 17:44 JOB #: [id number] CC: Rin Medeiros M.D. OPERATIVE REPORT Page 1 of 1 X Sangeetha Medeiros MD X PROCEDURE OPERATIVE NOTE
--- NOTE | ~2017-02-21 | DS ---
Unit #: [id number] #: [id number] Patient: SOURAV CERVANTES [id number] [address] [place], [place] [address] [id number] I MR#: [id number] NAME: SOURAV CERVANTES ROOM: 45 Age: 56 Sex: F Admission Date: 02/21/2017 : 1960 Discharge Date: 02/23/2017 Attending Physician: Rin Medeiros M.D. Referring Physician: Rin Medeiros M.D. Primary Care Physician: Primary Care Physician No DISCHARGE SUMMARY CHIEF COMPLAINT Painful left ankle replacement HISTORY OF PRESENT ILLNESS The patient is a 56-year-old female who underwent a left ankle replacement one year ago using the Jose Talaris implant. She has had persistent pain. X-rays demonstrate loosening of her talar component and possible loosening of the tibial component and bone scan also documents loosening. Workup for infection has been negative. She is admitted for revision of her left total ankle arthroplasty. HOSPITAL COURSE The patient was taken to the operating room on the date of admission where she underwent removal of her loose tibial and talar components and underwent revision using the Jose Talaris XP revision components. She had a flat cut talar component placed with bone grafting under the keel. There was a 1 cm diameter defect in the talus, which was bone grafted with proximal tibial bone graft. The tibial cut was re-cut 1 mm more proximally and a standard #1 tibial component was replaced. The keel was then bone grafted with autogenous graft. No cement was utilized. No other procedures were required. The patient had a stable postoperative course. She was seen by physical therapy and instructed on how to remain nonweightbearing on her affected side. Dressing was changed on the second postoperative day. Wounds were healing well. She was ready for discharge on the second postoperative day. FINAL DIAGNOSES Aseptic loosening left total ankle arthroplasty DISPOSITION AND RECOMMENDATIONS 1. The patient is discharged home. She will keep the dressing clean, dry and intact. She will continue ice and elevation. She will be nonweightbearing for two weeks. 2. Discharge medications remain the same as her home medications with the addition of Percocet 5/325 one or two every 4-6 hours p.r.n. pain, dispense 50. 3. Xarelto 10 mg p.o. daily for two weeks. 4. Follow up in my office in two weeks for dressing change and suture removal. At that point, we will apply a CAM boot and allow her to start walking as tolerated. Unit #: [id number] #: [id number] Patient: SOURAV CERVANTES Dictated by.Tristen Medeiros M.D. RTH/to TD: 02/24/2017 17:19 JOB #: [id number] DISCHARGE SUMMARY Page 1 of 1 X Sangeetha Medeiros MD X DISCHARGE SUMMARY
--- NOTE | ~2017-02-21 | HP ---
Unit #: [id number] #: [id number] Patient: SOURAV CERVANTES [id number] [address] [address] [id number] I MR#: [id number] NAME: SOURAV CERVANTES ROOM: 452 Age: 56 Sex: F Admission Date: 02/21/2017 : 1960 Attending Physician: Rin Medeiros M.D. Referring Physician: Rin Medeiros M.D. Primary Care Physician: Primary Care Physician No HISTORY AND PHYSICAL DATE OF ANTICIPATED ADMISSION/PROCEDURE February 21, 2017 CHIEF COMPLAINT Left ankle pain. HISTORY OF PRESENT ILLNESS This 56-year-old female underwent left total ankle arthroplasty using the Jose Talaris implant one year ago. She now has worsening pain. X-rays show loosening of her tibial and talar components. Workup for infection has been negative. Her CBC, sedimentation rate, and C-reactive protein are all normal. Bone scan demonstrates loosening of the tibial component and talar component. The patient has failed to respond to conservative care and is therefore to undergo revision of her total ankle arthroplasty using the Jose Talaris XT revision system. PAST MEDICAL HISTORY 1. Hypertension. 2. Recently diagnosed chronic kidney disease. 3. Dysphagia. 4. Crohn disease. 5. Rheumatoid arthritis. 6. Gastroesophageal reflux disease. 7. Hypercholesterolemia. PAST SURGICAL HISTORY As noted above. HOME MEDICATIONS 1. Estradiol. 2. Fexofenadine. 3. Leflunomide. 4. Lisinopril. 5. Motrin. 6. Omeprazole. 7. Remicade. 8. Simvastatin. 9. Bupropion. 10. Citalopram. 11. Methylprednisolone. 12. Pravastatin. 13. Quetiapine. 14. Ranitidine. 15. Verapamil. Unit #: [id number] #: [id number] Patient: SOURAV CERVANTES 16. Ambien. ALLERGIES None. SOCIAL HISTORY The patient is a nonsmoker and nondrinker. FAMILY HISTORY Negative. REVIEW OF SYSTEMS Unremarkable except as noted in History of Present Illness. PHYSICAL EXAMINATION GENERAL: This is a well-developed, well-nourished female in no acute distress. PHARYNX: Clear. NECK: Supple without masses. HEART: Regular sinus rhythm without murmurs or gallops. LUNGS: Clear. ABDOMEN: Soft and nontender without masses or organomegaly. EXTREMITIES: Evaluation of the left ankle shows a normal arch. The hindfoot is neutral. She has moderate swelling of the ankle. The anterior longitudinal incision is well healed. There is no warmth or effusion. The patient has tenderness to palpation over the medial malleolus. Motor testing is normal. Sensation is normal. Pulses are normal. DIAGNOSTIC STUDIES IMAGING: Standing x-rays of the left ankle show a medial malleolar screw in good position. There is no evidence of medial malleolar fracture. There is loosening of both the talar and tibial components. DIAGNOSIS Loose left total ankle arthroplasty. PLAN The patient has failed to respond to conservative care. She is therefore to undergo revision of the total ankle arthroplasty using a flat talar cut and revision talar component. We will recut the tibia and reinsert the tibial component with thicker poly. This procedure was described, along with the risks of bleeding, infection, nerve damage, need for further surgery in the future, loosening of the prosthesis, infection of the prosthesis, wound healing problems, and prolonged recovery time. She understands the above risks and agrees to proceed. Dictated by Bryce Hager/baron TD: 02/20/2017 19:54 JOB #: [id number] Unit #: [id number] #: [id number] Patient: SOURAV CERVANTES HISTORY AND PHYSICAL Page 1 of 1 X Sangeetha Medeiros MD X HISTORY AND PHYSICAL
[~2017-02-21 13:39] MED LIST changes: +ACETAMINOPHEN650 M1 PO; +GLUCOSAMINE &1 EAC1 PO
[2017-02-21] MEDS ORDERED: XELJANZ XR11 MG PO (14:16)
[2017-02-21 14:17] LABS: BASOPHIL% 1.1 % (0-2.5); EOSINOPHIL# 0.1 X10e3 (0-0.7); EOSINOPHIL% 2.4 % (0.0-7.0); HEMATOCRIT 37.8 % (35.0-45.0); HEMOGLOBIN 12.4 gm/dL (12.0-16.0); LYMPHOCYTE# 1.2 X10e3 (1.0-3.5); LYMPHOCYTE% 29.8 % (17.0-45.0); MEAN CELL VOLUME 93.4 FL (83-96); MEAN CORPUSCULAR HEMOGLOBIN 30.7 PG (28-34); MEAN CORPUSCULAR HGB CONC 32.9 g/dL (30-36); MONOCYTE# 0.5 X10e3 (0-1.0); NEUTROPHIL# 2.2 X10e3 (1.5-7.1); NEUTROPHIL% 53.7 % (40-75); PLATELET COUNT 227 X10e3 (140-420); RED BLOOD COUNT 4.04 X10e (3.90-5.30); RED CELL DISTRIBUTION WIDTH 13.7 % (11.0-15.5)
[2017-02-21 14:28] LABS: DIFF IND NO
[2017-02-21 14:46] LABS: BUN/CREATININE RATIO 11.53; CALCIUM SERUM 9.3 mg/dL (8.4-10.2); CREATININE SERUM 1.3 mg/dL (0.6-1.4); GLOM FILT RATE Estimated 45.2 mL/min (>60); POTASSIUM 4.2 mmol/L (3.5-5.1)
[2017-02-23] MEDS ORDERED: XARELTO10 MG PO (08:57)
[2017-02-23] MEDS ORDERED: PERCOCET 5/321 UDTAB PO (09:00)
== END 2017-02-23 11:55 | disposition home or self-care (01) | DRG 470 ==
LOC: CSUR 13:39 → CPACUOF 15:24 → CSUR 16:30 → CPACUOF 20:45 → C4B 20:45 → CPACUOF 22:25 → C4B 22:25
PROVIDERS: Orthopaedic Surgery
PROC: 0SRG0JZ Replacement of Left Ankle Joint with Synthetic Substitute, Open Approach (ICD-10-PCS; 2017-02-21)
PROC: 0QUH07Z Supplement Left Tibia with Autologous Tissue Substitute, Open Approach (ICD-10-PCS; 2017-02-21)
PROC: 0SBG0ZZ Excision of Left Ankle Joint, Open Approach (ICD-10-PCS; 2017-02-21)
PROC: 0SPG0JZ Removal of Synthetic Substitute from Left Ankle Joint, Open Approach (ICD-10-PCS; principal; 2017-02-21 16:30)
DX: T84.84XA Pain due to internal orthopedic prosthetic devices, implants and grafts, initial encounter (principal); T84.038A Mechanical loosening of other internal prosthetic joint, initial encounter; I12.9 Hypertensive chronic kidney disease with stage 1 through stage 4 chronic kidney disease, or unspecified chronic kidney disease; N18.9 Chronic kidney disease, unspecified; R13.10 Dysphagia, unspecified; M06.9 Rheumatoid arthritis, unspecified; K21.9 Gastro-esophageal reflux disease without esophagitis; E78.00 Pure hypercholesterolemia, unspecified; M65.872 Other synovitis and tenosynovitis, left ankle and foot; Z87.442 Personal history of urinary calculi
CPT/HCPCS: 80048; 85025; 87070; 87075; 87205; 88305; 88311; 97116; 97162; 97530; C1776; G8978-GP; G8979-GP; G8980-GP; J0690; J1100; J2250; J2270; J2405; J2550; J2795; J3010